=== PATIENT | female | born 1975 | race Caucasian/White ===

== ENCOUNTER → 2016-08-23 | Outpatient (CLI) | payer MEDICAID ==
[~2016-08-23] MED LIST: ALPR1TAB7 PO; AMPH30CA PO; FLUO20CA30 PO; HYDR-4246 PO; HYDR12.54 PO; IBUP-1547 PO; LEVO75TA10 PO; LISI-621 PO; METO5VIA2 PO; THYR15TA PO; ZOLP10TA2 PO
== END ==
LOC: WC.BC 12:31
PROVIDERS: ATTEND Obstetrics & Gynecology
DX: Z12.31 Encounter for screening mammogram for malignant neoplasm of breast (principal)

== ENCOUNTER 2016-09-05 08:05 | Observation (INO) | payer MEDICAID ==
[~2016-09-05] VITALS: Ht 157.5 cm; Wt 124.1 kg
--- OUTSIDE RECORDS SUMMARY | 2016-09-05 08:10 | XMS REPORT | Continuity of Care Document ---
Author Author [facility] Organization [facility] Address Unknown Phone Unavailable Care Team Providers Care Manager Quantitative Name Role Phone Tc Trevizo Primary Care Physician [phone] Source Comments Some departments are not documenting in the electronic medical record. If you do not see the information that you expected, contact Release of Information in the Health Information Management department at [phone] for further assistance in locating additional records.[facility] Active Allergies and Adverse Reactions No Known Allergies Current Medications Prescription Sig. Disp. Refills Start End Date Status Date lisinopril/hydrochlorothi Take by mouth daily. Active azide (ZESTORETIC) 20/25 tablet levothyroxine (SYNTHROID) Take 75 mcg by mouth Active 75 mcg tablet daily. amphetamine-dextroampheta Take 30 mg by mouth every Active mine XR(+) (ADDERALL XR) morning 30 mg capsule nitroglycerin (NITROSTAT) Place 0.4 mg under tongue Active 0.4 mg tablet every 5 minutes as needed. ALPRAZolam (XANAX) 1 mg Take 1 mg by mouth three Active tablet times daily as needed. FLUoxetine (PROZAC) 20 mg Take by mouth daily. Active capsule zolpidem (AMBIEN) 10 mg Take 10 mg by mouth at Active tablet bedtime as needed. Active Problems Problem Noted Date Syncope 02/08/2013 Overview: 01/30/13. Carotid Duplex ([facility]) 1. No significant plaque formation is identified within the cervical portion of either carotid artery. 2. No hemodynamically significant internal carotid artery stenosis. 01/30/13 MRI Brain ([facility]) 1. Negative MRI of brain. 2. Mild parnasal sinus diease. Chest pain, atypical 02/08/2013 HTN (hypertension) Anxiety Thyroid disease Social History Tobacco Use Types Packs/Day Years Used Date Never Smoker Alcohol Use Drinks/Week oz/Week Comments No Last Filed Vital Signs Vital Sign Reading Time Taken Blood Pressure 132/89 03/22/2013 3:49 PM POT RELINER Pulse 106 03/22/2013 3:49 PM POT RELINER Temperature - - Respiratory Rate - - Height 1.575 m (5' 2") 03/22/2013 3:49 PM POT RELINER Weight 99.837 kg (220 lb 1.6 oz) 03/22/2013 3:49 PM POT RELINER Body Mass Index 40.25 03/22/2013 3:49 PM POT RELINER Oxygen Saturation 100% 03/22/2013 3:49 PM POT RELINER Plan of Care Health Maintenance Due Date Last Done Comments Physical (Comprehensive) 1981 Exam Pertussis Vaccine 1985 Tetanus Vaccine 09/21/1991 Cervical Cancer Screening 09/21/1995 Breast Cancer Screening 2014 Influenza Vaccine 01/06/2017 Results from Last 3 Months Not on file
--- OUTSIDE RECORDS SUMMARY | 2016-09-05 08:10 | XMS REPORT | Continuity of Care Document ---
Author Author [facility] Organization [facility] Address Unknown Phone Unavailable Care Team Providers Care Journeyman Level Acoustic Analyst Name Role Phone IVÁN JAMES Primary Care Physician [phone] Insurance Providers Guarantor Juli Clifford Address [address] [place] [address] [place] Email [email or web address] Payer [facility] Community Plan Policy Number [id number] Subscriber's Name Juli Clifford Relationship 18 Self Effective Date 16 Expiration Date 16 Advance Directives Directive Response Recorded Date/Time Ordered Resuscitation Status Full Code 05/16/16 12:15pm Resuscitation Documents on File No 05/17/16 6:24am DPOA for Healthcare Only No 05/17/16 6:24am Living Will No 05/17/16 6:24am Problems Active Problems Medical Problem Onset Date Status Influenza A Unknown Acute Influenza A Unknown Acute Rash Unknown Acute Surgical Problem Onset Date Status Status post laparoscopic hysterectomy Unknown Medications Current Home Medications Medication Dose Units Route Directions Days Qty Instructions Start Date Alprazolam 1 Mg Tablet 1 Mg Oral As Needed as needed for Anxiety 06/07/14 Dextroamphetamine/Amphetamine (Adderall Xr 30 Mg Capsule) 30 Mg Cap.er.24h 1 Cap Oral Daily 06/07/14 Fluoxetine Hcl (Prozac) 20 Mg Capsule 1 Cap Oral Daily 06/07/14 Hydrochlorothiazide 12.5 Mg Tablet 1 Tab Oral Give With Breakfast 05/16/16 Hydrocodone/Acetaminophen ([place] 5-325 Tablet) 5-325 Tablet 1-2 Tab Oral Every 4 Hours as needed for Pain 40 Tablet 05/18/16 Ibuprofen 800 Mg Tablet 800 Mg Oral Every 8 Hours as needed for Pain 40 Tablet 05/18/16 Levothyroxine Sodium 75 Mcg Tablet 75 Mcg Oral Before Breakfast Once daily before breakfast. 06/07/14 Lisinopril 20 Mg Tablet 20 Mg Oral Daily for Hypertension Metoclopramide Hcl 5 Mg/1 Ml Vial 10 Mg Oral Every 6 Hours as needed for Nausea 20 Tablet 05/18/16 Thyroid,Pork (Hubbard Thyroid) 15 Mg Tablet 3 Tab Oral Daily 05/16 Zolpidem Tartrate (Ambien) 10 Mg Tablet 10 Mg Oral Bedtime as needed for Prn Orders Take 1 tablet, by mouth, 1 time a day (at BEDTIME). 06/07/14 Past Home Medications Medication Directions Ordered Status Ferrous Fumarate/Ascorbic Acid (Jaun-Sequels 65-25 Mg Caplet) 1 Each Tablet.er , 1 Tab Oral Twice A Day 05/16/16 Discontinued Norethindrone-E.estradiol-Iron (Lo Loestrin Fe 1-10 Tablet) 1 Each Tablet, 1 Tab Oral Daily 05/16/16 Discontinued Social History Social History Problem Response Recorded Date/Time Onset Date Status Reason for Hospitalization HYSTERECTOMY 05/18/2016 1:07pm Not Applicable Not Applicable Chewing Tobacco Status No 05/17/2016 6:21am Not Applicable Not Applicable Hx Substance Use No 05/17/2016 6:21am Not Applicable Not Applicable Hx Alcohol Use Y 4x year 05/17/2016 6:21am Not Applicable Not Applicable Has the pt used tobacco in the last 12 months No 05/17/2016 6:21am Not Applicable Not Applicable Query Response Start Date Stop Date Smoking Status Never smoker Hospital Discharge Instructions Instructions: Care Instructions: I was in the hospital because (patient own words): HYSTERECTOMY Discharge Diet: regular Discharge Activity: as reviewed Follow Up Appointments: FOLLOW UP WITH DR. GEE IN HER OFFICE ON Monday05/25/2016 AT 9:45 AM. Pending Lab / Results: Will be notified Expected Signs/Symptoms: as reviewed Notify Physician If: any concerns see written instructions During Business Hours:: Please call the physician's office at [phone] After Business Hours:: Please call [phone] and have the dorr operator page the physician. Pain Management/Treatment: RXs provided Wound/Incision Care: as instructed Condition at time of discharge: Good Plan of Care Discharge Date 05/18/16 2:20pm Instructions/Education Provided [facility] Hysterectomy Dismissal Prescriptions See Medication Section Functional Status Query Response Date Recorded Mobility Status Ambulatory May 17, 2016 3:36pm Assistive Devices None May 17, 2016 3:36pm Activity Limitations None May 17, 2016 3:36pm Feeding Ability Independent May 17, 2016 3:36pm Toileting Ability Independent May 17, 2016 3:36pm Grooming Ability Independent May 17, 2016 3:36pm Dressing Ability Independent May 17, 2016 3:36pm Driving Ability Independent May 17, 2016 3:36pm Housework Ability Independent May 17, 2016 3:36pm Meal Preparation Ability Independent May 17, 2016 3:36pm Stair Climbing Ability Independent May 17, 2016 3:36pm Ability to complete ADL's impeded by No change May 17, 2016 3:36pm Cognitive/Perceptual Impairments None May 17, 2016 3:36pm Visual Assistive Devices Glasses With patient May 17, 2016 3:36pm Preferred Method of Learning Reading Listening May 17, 2016 3:36pm Allergies, Adverse Reactions, Alerts No known allergies. Immunizations Query Response on File Recorded Date/Time Hx Influenza Vaccination Y 2016 05/17/16 6:21am Hx Pneumococcal Vaccination No 05/17/16 6:21am Hx Influenza Vaccination Y 2016 05/17/16 6:21am Influenza Vaccine Hx 2015 05/17/16 3:37pm Vital Signs Acute Vital Signs Vital Response Date/Time Temperature (Fahrenheit) 98.0 deg F (96.8 - 99.1) 05/18/2016 12:00pm Temperature (Calculated Celsius) 36.99735 degrees C (36.0 - 37.3) 05/18/2016 12:00pm Temperature Source Oral 05/18/2016 12:00pm Pulse Rate (adult) 74 bpm (60 - 100) 05/18/2016 12:00pm Respiratory Rate 18 breaths/min (10 - 20) 05/18/2016 12:00pm O2 Sat by Pulse Oximetry 97 % (90 - 100) 05/18/2016 12:00pm Oxygen Delivery Method Room Air 05/18/2016 12:00pm Oxygen Delivery Method Room Air 05/18/2016 11:13am Oxygen Flow Rate 1.00 L/min 05/17/2016 10:00pm Blood Pressure 130/74 mm Hg 05/18/2016 12:00pm Blood Pressure Source Automatic Cuff 05/18/2016 12:00pm Height (Feet) 5 feet 05/17/2016 5:40am Height (Inches) 2.00 inches 05/17/2016 5:40am Weight (Kilograms) 119.500 kg 05/18/2016 7:13am Body Mass Index (BMI) 47.5 05/17/2016 5:40am Results Laboratory Results Test Name Result Units Flags Reference Collection Date/Time Result Date/ Time Comments White Blood Count 6.0 T/MM3 4.5-11.0 05/17/2016 5:47am 05/17/2016 6: 14am Red Blood Count 4.41 M/MM3 4.00-5.20 05/17/2016 5:47am 05/17/2016 6: 14am Hemoglobin 12.9 GM/DL 12-16 05/17/2016 5:47am 05/17/2016 6:14am Hematocrit 38.3 % 36-46 05/17/2016 5:47am 05/17/2016 6:14am Mean Corpuscular Volume 86.8 UM3 80-100 05/17/2016 5:47am 05/17/2016 6: 14am Mean Corpuscular Hemoglobin 29.3 UUG 26-34 05/17/2016 5:47am 2016 6:14am Mean Corpuscular Hemoglobin Concent 33.7 GM/DL 31-37 05/17/2016 5:47am 05/17/2016 6:14am RDW Standard Deviation 40.1 FL 36.9-50.2 05/17/2016 5:47am 05/17/2016 6 :14am Platelet Count 239 T/MM3 130-400 05/17/2016 5:47am 05/17/2016 6:14am Mean Platelet Volume 9.9 UM3 9.4-12.4 05/17/2016 5:47am 05/17/2016 6: 14am Neutrophils (%) (Auto) 56.4 % 33-66 05/17/2016 5:47am 05/17/2016 6: 14am Lymphocytes (%) (Auto) 34.8 % 23-45 05/17/2016 5:47am 05/17/2016 6: 14am Monocytes (%) (Auto) 4.7 % 0-9.0 05/17/2016 5:4705/17/2016 6:14am Eosinophils (%) (Auto) 3.4 % 0-4 05/17/2016 5:4705/17/2016 6:14am Basophils (%) (Auto) 0.5 % 0-2 05/17/2016 5:4705/17/2016 6:14am Immature Granulocyte % (Auto) 0.2 % 0.0-0.5 05/17/2016 5:472016 6:14am Absolute Neutrophils (auto) 3.4 T/MM3 1.8-7.7 05/17/2016 5:472016 6:14am Absolute Lymphocytes (auto) 2.1 T/MM3 1-4.8 05/17/2016 5:472016 6:14am Absolute Monocytes (auto) 0.3 T/MM3 0-0.8 05/17/2016 5:4705/17/2016 6:14am Absolute Eosinophils (auto) 0.2 T/MM3 0-0.5 05/17/2016 5:472016 6:14am Absolute Basophils (auto) 0.0 T/MM3 0-0.2 05/17/2016 5:05/17/2016 6:14am Absolute Immature Granulocyte (auto 0.01 T/MM3 0.00-0.03 05/17/2016 5: 4705/17/2016 6:14am Icterus Index < 2 0-7 05/17/2016 5:4705/17/2016 6:20am Chemistry Specimen Hemolysis < 15 0-25 05/17/2016 5:4705/17/2016 6 :20am 0-25: Specimen Exhibited No Hemolysis. Turbidity < 20 0-20 05/17/2016 5:4705/17/2016 6:20am Sodium Level 142 MEQ/L 134-144 05/17/2016 5:4705/17/2016 6:20am Potassium Level 4.0 MEQ/L 3.6-5 05/17/2016 5:47am 05/17/2016 6:20am Chloride Level 106 MEQ/L 98-107 05/17/2016 5:4705/17/2016 6:20am Carbon Dioxide Level 25 MEQ/L 22-30 05/17/2016 5:47am 05/17/2016 6: 20am Anion Gap 11 MEQ/L 5-15 05/17/2016 5:47am 05/17/2016 6:20am Blood Urea Nitrogen 6.0 MG/DL L 7-17 05/17/2016 5:47am 05/17/2016 6: 20am Creatinine 0.8 MG/DL 0.7-1.2 05/17/2016 5:47am 05/17/2016 6:20am BUN/Creatinine Ratio 8 RATIO 6-26 05/17/2016 5:47am 05/17/2016 6:20am Glomerular Filtration Rate Calc 79 05/17/2016 5:47am 05/17/2016 6: 20am Glucose Level 104 MG/DL 65-110 05/17/2016 5:47am 05/17/2016 6:20am Calculated Osmolality 271 MOSM/KG 261-280 05/17/2016 5:47am 05/17/2016 6:20am Calcium Level 8.7 MG/DL 8.4-10.2 05/17/2016 5:47am 05/17/2016 6:20am Total Bilirubin 0.60 MG/DL 0.20-1.30 05/17/2016 5:47am 05/17/2016 6: 20am Alkaline Phosphatase 67 U/L 38-126 05/17/2016 5:47am 05/17/2016 6:20am Total Protein 6.8 G/DL 6.3-8.2 05/17/2016 5:47am 05/17/2016 6:20am Albumin 3.9 G/DL 3.5-5.0 05/17/2016 5:47am 05/17/2016 6:20am Globulin 2.9 G/DL 2.4-3.6 05/17/2016 5:47am 05/17/2016 6:20am Albumin/Globulin Ratio 1.3 RATIO 1.1-2.2 05/17/2016 5:47am 05/17/2016 6 :20am Aspartate Amino Transf (AST/SGOT) 21 U/L 14-36 05/17/2016 5:47am 2016 6:20am Alanine Aminotransferase (ALT/SGPT) 35 U/L 9-52 05/17/2016 5:47am 05/17 6:20am Urine Collection Type CLEANCATCH-MIDSTREAM 05/17/2016 6:56am 2016 7:19am Urine Color YELLOW YELLOW 05/17/2016 6:56am 05/17/2016 7:19am Urine Turbidity CLEAR CLEAR 05/17/2016 6:56am 05/17/2016 7:19am Urine Specific [place] 1.015 1.015-1.025 05/17/2016 6:56am 2016 7:19am Urine pH 8.5 H 5.0-8.0 05/17/2016 6:56am 05/17/2016 7:19am Urine Leukocyte Esterase NEGATIVE NEGATIVE 05/17/2016 6:56am 2016 7:19am Urine Nitrite NEGATIVE NEGATIVE 05/17/2016 6:56am 05/17/2016 7:19am Urine Protein 1+ A NEGATIVE 05/17/2016 6:56am 05/17/2016 7:19am Urine Glucose (UA) NEGATIVE NEGATIVE 05/17/2016 6:56am 05/17/2016 7: 19am Urine Ketones NEGATIVE NEGATIVE 05/17/2016 6:56am 05/17/2016 7:19am Urine Urobilinogen 0.2 EU/DL NORMAL 05/17/2016 6:56am 05/17/2016 7: 19am Urine Bilirubin NEGATIVE NEGATIVE 05/17/2016 6:56am 05/17/2016 7: 19am Urine Blood 3+ A NEGATIVE 05/17/2016 6:56am 05/17/2016 7:19am Urine WBC NONE SEEN /HPF 0-5 05/17/2016 6:56am 05/17/2016 7:30am Urine RBC 5-10 /HPF H 0-3 05/17/2016 6:56am 05/17/2016 7:30am Urine Squamous Epithelial Cells 10-20 05/17/2016 6:56am 05/17/2016 7:30am Urine Bacteria TRACE H NEGATIVE 05/17/2016 6:56am 05/17/2016 7:30am Urine Culture Indicated CULT NOT INDICATED 05/17/2016 6:56am 2016 7:30am Procedures Procedure Status Date Provider(s) Robot-assisted hysterectomy Completed 05/17/16 JOHN GEE MD Encounters Encounter Location Arrival/Admit Date Discharge/Depart Date Attending Provider Departed [facility] 05/17/16 5:10am 05/18/16 2: 20pm JOHN GEE MD
[2016-09-05] MEDS ORDERED: NORMAL SALINE 1,000 ML IV ONE (08:17)
--- NOTE | 2016-09-05 08:26 | ERPDOC ---
Departure Disposition Decision Date: September 05, 2016 Disposition Decision Time: 09:51 Disposition: 02 TO [facility] Impression Impression Impression: Primary Impression: Abdominal pain Abdominal location: epigastric Qualified Codes: R10.13 - Epigastric pain Additional Impression: Nausea & vomiting Vomiting type: unspecified Vomiting Intractability: non-intractable Qualified Codes: R11.2 - Nausea with vomiting, unspecified Severity: Severe Condition: Improved Seen By: Physician only Referrals: IVÁN JAMES (PCP) RADHA ALVES DO (Family) Problems/Meds/Labs Reviewed?: Yes Medications reviewed and manag: Yes Follow up care ordered?: Yes Mental Status: Alert, Oriented HPI - Abdominal Pain General Chief Complaint: Abdominal Pain Stated Complaint: ABDOMINAL PAIN Time Seen by Provider: 08:17 Source: patient History/Exam Limitations: no limitations HPI - Abdominal Pain Initial Comments 40yo woman presents to the ER today for abdominal pain. Pts sx started on Sat with vague, crampy, stabbing abd pain. Sx are markedly worse with any food/ drink. She had similar sx 20yrs ago when her GB was removed. Now has stabbing pain in her epigastrum that radiates to her back and right side. Recently started victoza injections for wt loss. Occurred At: home Onset: Rapid, Getting worse Duration: other Pain Scale: Now & Worst: 8/10 Quality: sharpness, stabbing Location: epigastric Radiation: RUQ, back Activities at Onset: none Modifying Factors: IMPROVES WITH: rest, sitting, WORSE WITH: analgesics, breathing, eating, lying down, movement, palpation, walking Associated Symptoms: back pain, heartburn, nausea/vomiting, DENIES: chest pain , diaphoresis, fatigue, fever/chills, headache, rash Hx of Similar Symptoms: Yes Allergies: Coded Allergies: No Known Allergies (Unverified , 09/05/16) Past History Past Medical History Metabolic: hypertension, hypothyroidism Hx Echocardiogram: No Psychological: ADHD, anxiety Surgical History General: gallbladder Reproductive/: tubal ligation Family History Family PMH: FOUND: other Vaccines Hx Influenza Vaccination: Yes (2016) Hx Pneumococcal Vaccination: No Social History Does patient use chewing tobac: No Second Hand Exposure: No Substance Use Type: does not use Sexuality: male partner Review of Systems GI Upper Abdomen: nausea, pain, see HPI, vomiting, DENIES: dysphagia, food intolerances, heartburn/indigestion, hematemesis All other Systems All Other Systems: Reviewed and Negative Physical Exam General General Nourishment: well nourished, well developed, appears stated age, no acute distress, adult, obese General Body Habitus: well groomed Vitals and Pain First Documented Vital Signs Date Time Temp Pulse Resp B/P Pulse Ox O2 Delivery O2 Flow Rate FiO2 09/05/16 08:08 98.3 104 20 183/110 98 Room Air Weight: Kilograms: 124.100 Height (feet): 5 Height (inches): 2.00 Triage Pain Scale: RN VS reviewed by Provider: Yes Normal Exams: Head: Normocephalic w/o trauma Eyes: Pupils are PERRLA w/ EOMI, No scleral icterus, irritation ENMT: No facial trauma, nasal exudates, pharyngeal erythema Neck: Full range of motion, without adenopathy, JVD Lymphatic: No lymphadenopathy Musculoskeletal: No tenderness, or deformity noted Integumentary: No rashes, hives, or bruising noted Neurologic: Patient is alert, and oriented Psychiatric: Patient exhibits, appropriate attention Respiratory (brief) Respiratory: FOUND: clear all weiss, equal bilaterally, symmetrical, NOT FOUND : rales, wheezes Cardiovascular (brief) Cardiac: FOUND: regular rate, regular rhythm, NOT FOUND: click, gallop, murmur , pedal edema, peripheral edema, rub Capillary Refill: <2 sec Pulses: all distal extremities, equal, strong Abdomen (brief) Abdominal Brief: FOUND: bowel normo active x4, soft, tender (Exquisitely TTP in epigastrum and RUQ. Pos rebound, but no guarding or Rovsing's.), NOT FOUND: distended, hepatosplenomegaly, pulsatile mass Differential Diagnoses Considering: Bowel Obstruction, Constipation, Gastroenteritis, GERD, Hepatitis , Hernia, Ileus, Neoplasm, Pancreatitis, Pyelonephritis, Renal Colic, Ulcer, UTI , Volvulus Progress Results/Orders Orders Procedure Category Date Status Time Iv Lock (Ed Only) EDM 09/05/16 Transmitted 08:17 Nothing By Mouth (Ed EDM 09/05/16 Transmitted Only) 08:17 Cbc W/Auto LAB 09/05/16 Complete Diff-Reflex Manual 08:17 Bmp - Basic Metabolic LAB 09/05/16 Complete Panel 08:17 Lipase LAB 09/05/16 Complete 08:17 Ua, Dip Wreflex LAB 09/05/16 Complete Microsc & Autotransfusionist 08:17 Normal Saline (Normal PHA 09/05/16 Complete Saline Iv) 08:17 Ondansetron Inj PHA 09/05/16 Complete (Zofran) 08:30 Ketorolac (Toradol) PHA 09/05/16 Complete 08:30 Tsh - Thyroid Stim LAB 09/05/[address] Abd/Pelvis CT 09/05/16 Resulted W/Contrast Only Iohexol (Omnipaque) PHA 09/05/16 Complete 09:03 Normal Saline (Ns) PHA 09/05/16 Complete 09:03 Saline Flush (Iv PHA 09/05/16 Complete Flush) 09:03 Hepatic Panel LAB 09/05/[address] In Facility: ED ADM 09/05/16 Transmitted 05/09 Ns (0.45% Ns) PHA 09/05/16 In Process 12:00 Ondansetron Inj PHA 09/05/16 In Process (Zofran) 12:00 Metoclopramide PHA 09/05/16 In Process (Reglan Inj) 12:00 Hydromorphone PHA 09/05/16 Complete (Dilaudid) 12:00 Npo: Sips And Chips DIET 09/05/16 Transmitted Dinner Zolpidem (Ambien 10mg) PHA 09/05/16 In Process 12:00 Pantoprazole PHA 09/05/16 Complete (Protonix Iv) 12:00 Pantoprazole PHA 09/05/16 In Process (Protonix Iv) 21:00 Lorazepam (Ativan) PHA 09/05/16 In Process 12:00 Cbc W/Auto LAB 09/06/16 Verified Diff-Reflex Manual 04:00 Cmp - Comprehensive LAB 09/06/16 Verified Metabolic 04:00 Hydromorphone PHA 09/05/16 In Process (Dilaudid) 12:29 Sucralfate Slurry PHA 09/05/16 In Process (Carafate Slurry) 17:00 Hemoglobin A1c LAB 09/05/16 Complete 12:21 Daily Weight SEVEN 09/05/16 In Process 13:03 Measure Intake And SEVEN 09/05/16 In Process Output 13:03 Compression Type Scd/ SEVEN 09/05/16 In Process Donny Hose 13:03 Lab Results Laboratory Tests Test 09/05/16 08:32 09/05/16 08:33 Urine Collection Type Cleancatch-midstream Urine Color Yellow Urine Turbidity Clear Urine pH 5.0 Urine Specific [place] >=1.030 Urine Protein Negative Urine Glucose (UA) Negative Urine Ketones Negative Urine Blood Negative Urine Nitrite Negative Urine Bilirubin Negative Urine Urobilinogen 0.2EU/DL Urine Leukocyte Esterase Negative Urinalysis Comment Microscopic not ind. White Blood Count 5.7T/MM3 Red Blood Count 4.89M/MM3 Hemoglobin 14.0GM/DL Hematocrit 42.4% Mean Corpuscular Volume 86.7UM3 Mean Corpuscular Hemoglobin 28.6UUG Mean Corpuscular Hemoglobin Concent 33.0GM/DL RDW Standard Deviation 39.6FL Platelet Count 230T/MM3 Mean Platelet Volume 10.0UM3 Immature Granulocyte % (Auto) 0.0% Neutrophils (%) (Auto) 56.5% Lymphocytes (%) (Auto) 35.0% Monocytes (%) (Auto) 5.2% Eosinophils (%) (Auto) 3.0% Basophils (%) (Auto) 0.3% Absolute Immature Granulocyte (auto 0.00T/MM3 Absolute Neutrophils (auto) 3.2T/MM3 Absolute Lymphocytes (auto) 2.0T/MM3 Absolute Monocytes (auto) 0.3T/MM3 Absolute Eosinophils (auto) 0.2T/MM3 Absolute Basophils (auto) 0.0T/MM3 Turbidity < 20 Sodium Level 147MEQ/L Potassium Level 3.9MEQ/L Chloride Level 110MEQ/L Carbon Dioxide Level 24MEQ/L Anion Gap 13MEQ/L Blood Urea Nitrogen 7.0MG/DL Creatinine 0.6MG/DL Glomerular Filtration Rate Calc 110 BUN/Creatinine Ratio 12RATIO Glucose Level 121MG/DL Hemoglobin A1c 5.7% Calculated Osmolality 281MOSM/KG Calcium Level 9.3MG/DL Total Bilirubin 0.60MG/DL Conjugated Bilirubin 0.00MG/DL Unconjugated Bilirubin 0.10MG/DL Icterus Index < 2 Aspartate Amino Transf (AST/SGOT) 76U/L Alanine Aminotransferase (ALT/SGPT) 90U/L Alkaline Phosphatase 100U/L Total Protein 7.1G/DL Albumin 4.0G/DL Globulin 3.1G/DL Albumin/Globulin Ratio 1.3RATIO Lipase 288U/L Thyroid Stimulating Hormone (TSH) 7.52MIU/L Chemistry Specimen Hemolysis < 15 Medications Current ED Medications Sodium Chloride (Normal Saline IV) 1,000 ml @ 0 mls/hr Q0M ONCE IV Last administered on 09/05/16 08:41; Start 09/05/16 at 08:17; Stop 09/05/16 at 08:18; Status DC Ondansetron HCl (Zofran) 4 mg O ONCE IV Last administered on 09/05/16 08:45; Start 09/05/16 at 08:30; Stop 09/05/16 at 08:31; Status DC Ketorolac Tromethamine (Toradol) 30 mg O ONCE IV Last administered on 08:42; Start 09/05/16 at 08:30; Stop 09/05/16 at 08:31; Status DC Iohexol 1 bottle 1 bottle STK-MED ONCE .ROUTE ; Start 09/05/16 at 09:03; Stop 09/05/16 at 09:04; Status DC Sodium Chloride (NS) 100 ml @ As Directed STK-MED ONCE .ROUTE ; Start 09/05/16 at 09:03; Stop 09/05/16 at 09:04; Status DC Sodium Chloride (Iv Flush) 10 ml STK-MED ONCE .ROUTE ; Start 09/05/16 at 09:03; Stop 09/05/16 at 09:04; Status DC Progress Progress Pt with Hx and PE c/w pancreatitis, but without lab/rad evidence to corroborate. Discussed admission with hospitalist due to PO intolerance. Will admit for obs. Consult/PCP Consult/PCP : Physician Contacted: Hospitalist Time Called: 09:27 Time of first response: 09:32 Type of discussion: Admit Discussion/PCP Discussion Details Dr. Guevara: requested adding LFTs; call back then. If LFTs are significantly elevated, pt may require ERCP. Called back, no bili elevation. Will admit for obs. CT CT : CT: Abd/Pelvis IV contrast Interpretation: Abnormal (Hepatomegaly and steatosis; DJD of lumbar spine), Reviewed Written Report BELTRAN COVINGTON DO September 05, 2016 08:26
[2016-09-05] MEDS ORDERED: KETOROLAC 30mg/ml INJECTION IV ONE (08:30)
[2016-09-05] MEDS ORDERED: ONDANSETRON 4mg/2ml INJECTION IV ONE (08:30)
--- OUTSIDE RECORDS SUMMARY | 2016-09-05 08:31 | XMS REPORT | Continuity of Care Document ---
Author Author [facility] Organization [facility] Address Unknown Phone Unavailable Care Team Providers Care Control Tower Operator Name Role Phone Tc Trevizo Primary Care Physician [phone] Source Comments Some departments are not documenting in the electronic medical record. If you do not see the information that you expected, contact Release of Information in the Health Information Management department at [phone] for further assistance in locating additional records.[facility] Active Allergies and Adverse Reactions No Known [...] Date Syncope 02/08/2013 Overview: 01/30/13. Carotid Duplex ([facility]) 1. No significant plaque formation is identified within the cervical portion of either carotid artery. 2. No hemodynamically significant internal carotid artery stenosis. 01/30/13 MRI Brain ([facility]) 1. Negative MRI of brain. 2. Mild parnasal sinus diease. 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
[2016-09-05 08:45] LABS: BASOPHILS % (AUTO) 0.3 % (0-2); EOSINOPHILS # (AUTO) 0.2 T/MM3 (0-0.5); HCT - HEMATOCRIT 42.4 % (36-46); MEAN CORPUSCULAR HGB 28.6 UUG (26-34); MEAN CORPUSCULAR VOLUME 86.7 UM3 (80-100); MONOCYTES # (AUTO) 0.3 T/MM3 (0-0.8); MONOCYTES % (AUTO) 5.2 % (0-9.0); NEUTROPHILS #(AUTO)-ABSOLUTE 3.2 T/MM3 (1.8-7.7); NEUTROPHILS % (AUTO) 56.5 % (33-66); RED BLOOD COUNT 4.89 M/MM3 (4.00-5.20); WBC - WHITE BLOOD COUNT 5.7 T/MM3 (4.5-11.0)
[2016-09-05 08:45] LABS: BLOOD, URINE NEGATIVE (NEGATIVE); COLOR,URINE YELLOW (YELLOW); LEUKOCYTE ESTERASE ,URINE NEGATIVE (NEGATIVE); NITRITE,URINE NEGATIVE (NEGATIVE); UROBILINOGEN,URINE 0.2 EU/DL (NORMAL)
--- NOTE | 2016-09-05 08:48 | NUR ---
IV IVF INFUSING AND MEDS ADMINISTERED ORDERED
[2016-09-05 08:54] LABS: ANION GAP 13 MEQ/L (5-15); BUN/CREATININE RATIO 12 RATIO (6-26); CALCIUM 9.3 MG/DL (8.4-10.2); CHLORIDE 110 MEQ/L (98-107); CO2 - CARBON DIOXIDE 24 MEQ/L (22-30); CREATININE 0.6 MG/DL (0.7-1.2); GLOMERULAR FILTRATION RATE 110; GLUCOSE 121 MG/DL (65-110); LIPASE 288 U/L (23-300); POTASSIUM 3.9 MEQ/L (3.6-5); SODIUM 147 MEQ/L (134-144)
[2016-09-05] MEDS ORDERED: IOHEXOL 300 MG/ML 100ml INJECTION ONE (09:03)
[2016-09-05] MEDS ORDERED: NORMAL SALINE 100 ML ONE (09:03)
[2016-09-05] MEDS ORDERED: SALINE FLUSH 10ml SYRINGE ONE (09:03)
--- NOTE | 2016-09-05 09:03 | NUR ---
RADIOLOGY PT TO RADIOLOGY PER CART
--- NOTE | 2016-09-05 09:15 | NUR ---
RADIOLOGY AK FROM RADIOLOGY PER CART
--- NOTE | 2016-09-05 09:27 | DI ---
Indication: ITS.REASON: Abd pain, potential pancreatitis Procedure: CT ABD/PELVIS W/CONTRAST ONLY: Encounter: Initial Comparison: None Technique: Axial CT images were performed through the abdomen and pelvis after the administration of intravenous contrast. Coronal and sagittal reformatted images were also obtained. Automated Exposure Control and Iterative Reconstruction dose reducing techniques were utilized. Contrast: Omnipaque 300 100 mL Findings: Lower lungs: The visualized lower lungs are well-aerated without focal airspace consolidation. The visualized heart is normal in size without pericardial effusion. Abdomen: The liver is enlarged and hypodense but enhances homogeneously without focal mass. The gallbladder is surgically absent. No biliary ductal dilatation. The pancreas enhances homogeneously with no significant pancreatic inflammatory changes appreciated. The spleen is normal in size and enhancement. The adrenal glands are within normal limits. The kidneys enhance symmetrically and appear normal. The ureters are normal in course and caliber. The abdominal aorta is normal in course and caliber. The mesenteric arterial and venous structures appear patent. The stomach is contracted and appears grossly normal. Small bowel loops are normal in caliber without evidence of obstruction. The colon appears normal. The appendix is normal. No intra-abdominal free air, free fluid, focal fluid collections, or lymphadenopathy. Pelvis: The bladder is distended and appears normal. The uterus is surgically absent. No adnexal masses seen. No pelvic free fluid or lymphadenopathy. Osseous structures and soft tissues: No acute osseous abnormality. Degenerative disc disease of the visualized spine. Impression: 1. No abnormal pancreatic enhancement or peripancreatic inflammatory changes to suggest acute pancreatitis by CT. 2. No other acute abdominopelvic process identified by contrast-enhanced CT. 3. Hepatomegaly and steatosis. 4. Cholecystectomy and hysterectomy. 5. Degenerative disc disease of the visualized spine. .
[2016-09-05] MEDS ORDERED: LIRA0.6P2 SQ (09:32)
[2016-09-05] MEDS ORDERED: LISI1TAB13 PO (09:32)
[2016-09-05] MEDS ORDERED: ALBU8.5H INH (09:32)
[2016-09-05 09:45] LABS: ALBUMIN/GLOBULIN RATIO 1.3 RATIO (1.1-2.2); ALKALINE PHOSPHATASE 100 U/L (38-126); ALT (SGPT) 90 U/L (9-52); AST (SGOT) 76 U/L (14-36); TOTAL PROTEIN 7.1 G/DL (6.3-8.2)
--- NOTE | 2016-09-05 10:13 | NUR ---
REPORT REPORT TO [facility]
--- OUTSIDE RECORDS SUMMARY | 2016-09-05 10:14 | XMS REPORT | Continuity of Care Document ---
Author Author [facility] Organization [facility] Address Unknown Phone Unavailable Care Team Providers Care Stave Machine Tender Name Role Phone Tc Trevizo Primary Care Physician [phone] Source Comments Some departments are not documenting in the electronic medical record. If you do not see the information that you expected, contact Release of Information in the Health Information Management department at [phone] for further assistance in locating additional records.[facility] Active Allergies and Adverse Reactions [...] Date Syncope 02/08/2013 Overview: 01/30/13. Carotid Duplex ([facility]) 1. No significant plaque formation is identified within the cervical portion of either carotid artery. 2. No hemodynamically significant internal carotid artery stenosis. 01/30/13 MRI Brain ([facility]) 1. Negative MRI of brain. 2. Mild parnasal sinus diease. 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
--- NOTE | 2016-09-05 10:15 | NUR ---
COMFORT PT RATES PAIN 5-6/10. PT REPORTS SHE FEELS BLOATED
--- NOTE | 2016-09-05 10:25 | NUR ---
TRANSFER PT TO ROOM 145 PER WC
--- NOTE | 2016-09-05 10:25 | NUR ---
ARRIVAL pt arrived to medical unit at 1025, from ER, via wheelchair. vitals and weight were taken and entered. pt is on room air. denies needing pain meds. pt is alert and oriented. pt was assessed and made comfortable.
[2016-09-05 10:32] VITALS: Ht 157.5 cm; Wt 124.1 kg
[2016-09-05 10:35] VITALS: BP 124/69; PULSE 85; RESP 18; TEMP 97.6; O2SAT 100
[2016-09-05 10:40] VITALS: PULSE 82; RESP 18
[2016-09-05] MEDS ORDERED: ZOLPIDEM 10 MG TABLET PO PRN (12:00)
[2016-09-05] MEDS ORDERED: PANTOPRAZOLE 40mg INJECTION IV ONE (12:00)
[2016-09-05] MEDS ORDERED: HYDROMORPHONE 2mg/ml INJECTION IV PRN (12:00)
[2016-09-05] MEDS: METOCLOPRAMIDE 10mg/2ml INJECTION IV SCH ×3 (12:18→19:10)
[2016-09-05] MEDS: 1/2 NS 1,000 ML IV SCH ×2 (12:26→20:51)
[2016-09-05] MEDS: HYDROMORPHONE 2mg/ml INJECTION IV PRN ×4 (12:31→23:46)
--- NOTE | 2016-09-05 13:03 | HPPDOC ---
LEENA ZHANG SEED TRUCKER 09/05/16 1144: HPI - Adult Date DATE: 09/05/16 TIME: 11:40 General Chief Complaint: Abdominal pain History of Present Illness Florencia Clifford is a 40 y/o lady who started having abdominal pain on Monday night. It started out like an upset stomach, and she thought she'd be able to "tough it out". However, her pain worsened in intensity, and "buckled" her over in pain. Initially the pain started in epigastric area but when it's severe it spreads all over and shoots to her back. She has had severe nausea and near- emesis (she's holding it in). She hasn't been able to eat anything - as soon as she does the pain starts. She is only able to tolerate ice chips. Symptoms start even with a sip of lala phoebe. She denies fever/chills, weakness, or syncope. She reports an hour-long episode of dizziness about a week ago. No respiratory symptoms. The pain doesn't advance into her chest. She reports that her 15-year old had mono 3 weeks ago, but otherwise has not been exposed to any illness. Her family has been eating the same food as she has been and no one else is sick. She denies any recent travel. No dysuria or frequency. She takes Ibuprofen 800 mg a couple times per week. No ASA use. She reports she's had abdominal bloating that started 2 weeks after her hysterectomy in May - the bloating is made worse with ambulation. She's recently seen Dr. Velez for weight loss, and started Victoza about 2 weeks ago; otherwise, no new medication. Since her abdominal pain and nausea wouldn't relent, she presented to [facility] ED. Initial VS were stable (mild tachycardia). CBC was unremarkable. Chemistries showed hypernatremia (147) and mildly elevated LFTs (AST 76, ALT 90; AP & Tbili were normal). UA was negative for UTI. A CT scan of her abdomen and pelvis was done, which was negative for acute findings. She received a liter of fluid, Zofran, and Toradol in the ED without resolution of her symptoms. The hospitalist service was notified and she was admitted to observation status for further evaluation and symptom control. Past Medical History Past Medical History Patient's Medical History: (1) ADHD (attention deficit hyperactivity disorder) (2) Anxiety (3) Borderline hyperlipidemia (4) Depression (5) HTN (hypertension) (6) Nonalcoholic fatty liver disease (7) Hypothyroidism (8) Insomnia (9) Paroxysmal tachycardia (10) Morbid obesity with BMI of 50.0-59.9, adult Surgical History Patient's Surgical History: Robotic-assisted vaginal hysterectomy 05/2016 (Dr. Morillo) LEEP of cervic 2002 BTL 2001 Cholecystectomy 1993 Current Medications Home Meds Active Scripts Ibuprofen (Ibuprofen) 800 Mg Tablet, 800 MG PO Q8H Y for PAIN, #40 TAB Prov:JOHN MORILLO MD 05/18/16 Reported Medications Liraglutide (Victoza 3-River) 0.6 Mg/0.1 Ml Pen.injctr, 0.6 MG SQ HS, SYRINGE 09/05/16 Albuterol Sulfate (Proair HFA 90 mcg/actuation) 8.5 Gm Hfa.aer.ad, 2 PUFF INH PRN Y for ASTHMA, #85 09/05/16 Lisinopril/Hydrochlorothiazide (Lisinopril-Hctz 20-25 mg Tab) 1 Each Tablet, 1 TAB PO DAILY 09/05/16 Alprazolam (Alprazolam) 1 Mg Tablet, 1 MG PO PRN Y for ANXIETY, TAB 06/07/14 Zolpidem Tartrate (Ambien) 10 Mg Tablet, 10 MG PO HS Y for PRN ORDERS, TAB Take 1 tablet, by mouth, 1 time a day (at BEDTIME). 06/07/14 Dextroamphetamine/Amphetamine (Adderall Xr 30 mg Capsule) 30 Mg Cap.er.24h, 1 CAP PO DAILY, CAP 06/07/14 Allergies: Coded Allergies: No Known Allergies (Unverified , 09/05/16) Family History Family History: Brother of sudden cardiac arrest at age 46 Sister has RA, Reynaud's, HLD Mother has HLD, anxiety, spondylothesis of spine Father had pancreatic cancer and at age 72. Also had HTN. MGM - of old age. MGP - of stomach cancer. PGM & PGF - in a car accident before Florencia was born. PGF had HTN. Social History Smoking Status: Never smoker Does patient use chewing tobac: No Second Hand Exposure: No Substance Use Type: does not use Alcohol Intake: other (1-2 times per year) Sexuality: male partner Number of Children: 5 Current Occupation: Student at [employer]. Advance Directives: No DPOA for Healthcare Only Social History Comments PCP - Dr. Velez Review of Systems Constitutional: REPORTS: appetite decrease, fatigue, weight gain (30 lbs since 04/2016), DENIES: chills, dizziness, fever, weakness Eyes Vision: DENIES: vision changes ENMT Sinuses: NOT FOUND: congestion, rhinorrhea Mouth/Throat: DENIES: sore throat Cardiovascular DENIES: chest pain, dyspnea on exertion Vascular: DENIES: pedal edema Pulmonary Respiratory: DENIES: cough, dyspnea GI Upper Abdomen: abdominal swelling (ever since hysterectomy in May - bloating worsens with walking), nausea, pain, see HPI Lower Abdomen: DENIES: blood in stool, constipation, diarrhea, melena General: DENIES: burning, dysuria, frequency, urgency Musculoskeletal General: DENIES: joint pain Lumbar: DENIES: pain Integumentary Skin: DENIES: rash Neurological General: headache, DENIES: memory disturbances, seizures, syncope, weakness Psychiatric Psychiatric: anxiety, DENIES: depression Hematologic/Lymphatic DENIES: anemia Allergic/Immunological DENIES: frequent infections All Other Systems All Other Systems: Reviewed Physical Exam General General Nourishment: well nourished, well developed, obese Vital Signs Vital Signs Date Time Temp Pulse Resp B/P Pulse Ox O2 Delivery O2 Flow Rate FiO2 09/05/16 10:40 82 18 09/05/16 10:35 97.6 124/69 100 Room Air Height (Feet): 5 Height (Inches): 2.00 Eyes Brief: FOUND: PERRL, NOT FOUND: scleral icterus ENMT Brief: NOT FOUND: mucosa moist (tongue dry), pharnyx erythema Neck Brief: NOT FOUND: adenopathy Respiratory Auscultation: FOUND: normal (anterior breath sounds were clear), NOT FOUND: rales, rhonchi, wheezes Cardiovascular Auscultation: FOUND: S1, S2, regular Peripheral Pulses: 2+: Dorasalis Pedis (L), Dorsalis Pedis (R), Posterior Tibial (L), Posterior Tibial (R), Radial (L), Radial (R) Edema: 0: Anasarca, Arm (L), Arm (R), Face, Leg (L), Leg (R) Abdomen Inspection: FOUND: distention Palpation: FOUND: involuntary guarding, soft, tender, voluntary guarding, NOT FOUND: McBurney's point tender, Kramer's sign, rebound Auscultation: FOUND: normo active Comments very tender with guarding LUQ, epigastric, and RUQ Lymphatic (brief) Lymphatic Brief: NOT FOUND: adenopathy Musculoskeletal (brief) Musculoskeletal Brief: NOT FOUND: deformity Integumentary (brief) Integumentary Brief: FOUND: dry, pink, warm Integumentary General: FOUND: dry, warm Color: FOUND: pink Neurologic (brief) Neurological Brief: FOUND: cranial 2-12 intact (grossly) Neurologic GCS Eye Opening: (4)Spontaneous GCS Verbal: (5)Oriented GCS Motor: (6)Obeys Commands RN Documented GCS Total: 15 Psychiatric (brief) FOUND: alert, attentive, normal affect, oriented Laboratory Laboratory Tests Test 09/05/16 08:32 09/05/16 08:33 Urine Collection Type Cleancatch-midstream Urine Color Yellow Urine Turbidity Clear Urine pH 5.0 Urine Specific Carlton >=1.030 Urine Protein Negative Urine Glucose (UA) Negative Urine Ketones Negative Urine Blood Negative Urine Nitrite Negative Urine Bilirubin Negative Urine Urobilinogen 0.2EU/DL Urine Leukocyte Esterase Negative Urinalysis Comment Microscopic not ind. White Blood Count 5.7T/MM3 Red Blood Count 4.89M/MM3 Hemoglobin 14.0GM/DL Hematocrit 42.4% Mean Corpuscular Volume 86.7UM3 Mean Corpuscular Hemoglobin 28.6UUG Mean Corpuscular Hemoglobin Concent 33.0GM/DL RDW Standard Deviation 39.6FL Platelet Count 230T/MM3 Mean Platelet Volume 10.0UM3 Immature Granulocyte % (Auto) 0.0% Neutrophils (%) (Auto) 56.5% Lymphocytes (%) (Auto) 35.0% Monocytes (%) (Auto) 5.2% Eosinophils (%) (Auto) 3.0% Basophils (%) (Auto) 0.3% Absolute Immature Granulocyte (auto 0.00T/MM3 Absolute Neutrophils (auto) 3.2T/MM3 Absolute Lymphocytes (auto) 2.0T/MM3 Absolute Monocytes (auto) 0.3T/MM3 Absolute Eosinophils (auto) 0.2T/MM3 Absolute Basophils (auto) 0.0T/MM3 Turbidity < 20 Sodium Level 147MEQ/L Potassium Level 3.9MEQ/L Chloride Level 110MEQ/L Carbon Dioxide Level 24MEQ/L Anion Gap 13MEQ/L Blood Urea Nitrogen 7.0MG/DL Creatinine 0.6MG/DL Glomerular Filtration Rate Calc 110 BUN/Creatinine Ratio 12RATIO Glucose Level 121MG/DL Calculated Osmolality 281MOSM/KG Calcium Level 9.3MG/DL Total Bilirubin 0.60MG/DL Conjugated Bilirubin 0.00MG/DL Unconjugated Bilirubin 0.10MG/DL Icterus Index < 2 Aspartate Amino Transf (AST/SGOT) 76U/L Alanine Aminotransferase (ALT/SGPT) 90U/L Alkaline Phosphatase 100U/L Total Protein 7.1G/DL Albumin 4.0G/DL Globulin 3.1G/DL Albumin/Globulin Ratio 1.3RATIO Lipase 288U/L Thyroid Stimulating Hormone (TSH) 7.52MIU/L Chemistry Specimen Hemolysis < 15 Assessment & Plan Problems: (1) Abdominal pain Status: Acute Qualifiers: Abdominal location: epigastric Qualified Codes: R10.13 - Epigastric pain Assessment & Plan: CT abd/pelvis 09/05/16 1. No abnormal pancreatic enhancement or peripancreatic inflammatory changes to suggest acute pancreatitis by CT. 2. No other acute abdominopelvic process identified by contrast-enhanced CT. 3. Hepatomegaly and steatosis. 4. Cholecystectomy and hysterectomy. 5. Degenerative disc disease of the visualized spine. (2) Hypernatremia Status: Acute (3) LFT elevation Status: Acute Assessment & Plan: AST and ALT have been normal in [id number] per [facility] records (4) Anxiety Status: Chronic (5) ADHD (attention deficit hyperactivity disorder) Status: Chronic (6) Insomnia Status: Chronic (7) Hypothyroidism Status: Chronic (8) Paroxysmal tachycardia Status: Chronic (9) HTN (hypertension) Status: Chronic (10) Nonalcoholic fatty liver disease Status: Chronic (11) Morbid obesity with BMI of 50.0-59.9, adult Status: Chronic Plan/Intensity of Service Admitted to observation status under the hospitalist service for intractable nausea and severe abdominal pain. Abdominal pain/Epigastric tenderness: Lipase with normal and CT did not show evidence of pancreatitis. Will start Carafate and Protonix to treat empirically for PUD. Dilaudid if needed for severe pain. Intractable Nausea: Zofran as needed (although was not helpful in the emergency department). Will start scheduled Reglan. Hypernatremia: She received a liter of normal saline in the emergency department. Will start half-normal saline at 125 mL per hour. AST and ALT elevations: Review of records at [facility] revealed normal LFTs in 2014 and 2016, even though she does carry a diagnosis of nonalcoholic fatty liver disease. Total bilirubin was normal, alkaline phosphatase was also normal. Hepatitis B and hepatitis C were done recently in the clinic, and were negative. Hyperglycemia (minimal): Glucose was 121 on admission. I did not see a hemoglobin A1c ordered at the clinic. Will check one now. Hypothyroidism: TSH on admission was 7.52. Recommend follow-up with Dr. Velez. She was taken off of her levothyroxine in April 2016. She had a TSH drawn in the clinic on 08/10/16, which was 4.97 (upper range of normal 4.96), free T4 was normal at 0.9. At that time, Dr. Velez recommended observation. Morbid obesity: Weight gain of 30 pounds since April 2016. Abdominal symptoms and bloating have made it very difficult for her to exercise since this exacerbates the bloating. Dr. Velez started her on Victoza about 2 weeks ago. Could consider a delayed reaction to Victoza. Side effect profile shows nausea in 39%, diarrhea in 21%, Constipation 19%, vomiting in 16% and abdominal pain in 5% of people. Assessment and plan was discussed with attending. DVT Prophylaxis: SCD'S Code Status Full Code Hospital Course Summary Disclaimer The hospital course summary below is not to be considered part of the above Progress Note. Hospital Course Summary 09/05/16 Admitted to observation status under the hospitalist service for intractable nausea and severe abdominal pain. Abdominal pain/Epigastric tenderness: Lipase with normal and CT did not show evidence of pancreatitis. Will start Carafate and Protonix to treat empirically for PUD. Dilaudid if needed for severe pain. Intractable Nausea: Zofran as needed (although was not helpful in the emergency department). Will start scheduled Reglan. Hypernatremia: She received a liter of normal saline in the emergency department. Will start half-normal saline at 125 mL per hour. AST and ALT elevations: Review of records at [facility] revealed normal LFTs in 2015 and 2016, even though she does carry a diagnosis of nonalcoholic fatty liver disease. Total bilirubin was normal, alkaline phosphatase was also normal. Hepatitis B and hepatitis C were done recently in the clinic, and were negative. Hyperglycemia (minimal): Glucose was 121 on admission. I did not see a hemoglobin A1c ordered at the clinic. Will check one now. Hypothyroidism: TSH on admission was 7.52. Recommend follow-up with Dr. Velez. She was taken off of her levothyroxine in April 2016. She had a TSH drawn in the clinic on 08/10/16, which was 4.97 (upper range of normal 4.96), free T4 was normal at 0.9. At that time, Dr. Velez recommended observation. Morbid obesity: Weight gain of 30 pounds since April 2016. Abdominal symptoms and bloating have made it very difficult for her to exercise since this exacerbates the bloating. Dr. Velez started her on Victoza about 2 weeks ago. Could consider a delayed reaction to Victoza. Side effect profile shows nausea in 39%, diarrhea in 21%, Constipation 19%, vomiting in 16% and abdominal pain in 5% of people. DEX RAMSAY MD 09/05/16 1325: Past Medical History Current Medications Home Meds Active Scripts Ibuprofen (Ibuprofen) 800 Mg Tablet, 800 MG PO Q8H Y for PAIN, #40 TAB Prov:JOHN MORILLO MD 05/18/16 Reported Medications Liraglutide (Victoza 3-River) 0.6 Mg/0.1 Ml Pen.injctr, 0.6 MG SQ HS, SYRINGE 09/05/16 Albuterol Sulfate (Proair HFA 90 mcg/actuation) 8.5 Gm Hfa.aer.ad, 2 PUFF INH PRN Y for ASTHMA, #85 09/05/16 Lisinopril/Hydrochlorothiazide (Lisinopril-Hctz 20-25 mg Tab) 1 Each Tablet, 1 TAB PO DAILY 09/05/16 Alprazolam (Alprazolam) 1 Mg Tablet, 1 MG PO PRN Y for ANXIETY, TAB 06/07/14 Zolpidem Tartrate (Ambien) 10 Mg Tablet, 10 MG PO HS Y for PRN ORDERS, TAB Take 1 tablet, by mouth, 1 time a day (at BEDTIME). 06/07/14 Dextroamphetamine/Amphetamine (Adderall Xr 30 mg Capsule) 30 Mg Cap.er.24h, 1 CAP PO DAILY, CAP 06/07/14 Allergies: Coded Allergies: No Known Allergies (Unverified , 09/05/16) Assessment & Plan Assessment Agree with above H+LEENA VELEZ APRN September 05, 2016 11:44 DEX RAMSAY MD September 05, 2016 13:25
[2016-09-05] MEDS: LORAZEPAM 2 MG/ML INJECTION IV PRN ×2 (15:38→21:42)
[2016-09-05] MEDS: ONDANSETRON 4mg/2ml INJECTION IV PRN ×2 (15:38→21:44)
[2016-09-05 16:00] VITALS: BP 128/73; PULSE 86; RESP 18; TEMP 98.1; O2SAT 98
[2016-09-05] MEDS: SUCRALFATE 1 G/10ml ORAL SUSPENSION PO SCH ×2 (18:48→21:45)
--- NOTE | 2016-09-05 21:45 | NUR ---
comfort states abdominal discomfort and nausea. Zofran given, pt. requests Ativan for anxiousness due to discomfort
[2016-09-05] MEDS: PANTOPRAZOLE 40mg INJECTION IV SCH (21:47)
--- NOTE | 2016-09-05 23:46 | NUR ---
comfort up in room with good balance. Denies dizziness as up. Requests Dilaudid for abdominal pain
[2016-09-06 00:17] VITALS: BP 125/71; PULSE 86; RESP 16; TEMP 97; O2SAT 96
[2016-09-06] MEDS: METOCLOPRAMIDE 10mg/2ml INJECTION IV SCH ×3 (03:22→14:15)
[2016-09-06] MEDS: HYDROMORPHONE 2mg/ml INJECTION IV PRN (04:31)
--- NOTE | 2016-09-06 04:35 | NUR ---
rest sleeps off and on, repositions self for comfort. Up in room w/ good balance. Requests pain med, Dilaudid given
[2016-09-06] MEDS: 1/2 NS 1,000 ML IV SCH ×2 (05:10→14:15)
[2016-09-06 05:19] LABS: BASOPHILS % (AUTO) 0.2 % (0-2); EOSINOPHILS # (AUTO) 0.2 T/MM3 (0-0.5); EOSINOPHILS % (AUTO) 3.6 % (0-4); HGB - HEMOGLOBIN 12.3 GM/DL (12-16); IMMATURE GRANULOCYTE # (AUTO) 0.01 T/MM3 (0.00-0.03); IMMATURE GRANULOCYTE % (AUTO) 0.2 % (0.0-0.5); LYMPHOCYTES % (AUTO) 41.2 % (23-45); MEAN CORPUSCULAR HGB 28.9 UUG (26-34); MEAN CORPUSCULAR HGB CONC(MCHC 33.2 GM/DL (31-37); MEAN CORPUSCULAR VOLUME 86.9 UM3 (80-100); MEAN PLATELET VOLUME 10.1 UM3 (9.4-12.4); MONOCYTES # (AUTO) 0.2 T/MM3 (0-0.8); MONOCYTES % (AUTO) 4.6 % (0-9.0); NEUTROPHILS #(AUTO)-ABSOLUTE 2.4 T/MM3 (1.8-7.7); NEUTROPHILS % (AUTO) 50.2 % (33-66); RED BLOOD COUNT 4.26 M/MM3 (4.00-5.20); WBC - WHITE BLOOD COUNT 4.8 T/MM3 (4.5-11.0)
[2016-09-06 05:29] LABS: ALBUMIN 3.1 G/DL (3.5-5.0); ALBUMIN/GLOBULIN RATIO 1.1 RATIO (1.1-2.2); ALKALINE PHOSPHATASE 60 U/L (38-126); ALT (SGPT) 82 U/L (9-52); ANION GAP 11 MEQ/L (5-15); AST (SGOT) 74 U/L (14-36); BUN/CREATININE RATIO 10 RATIO (6-26); CALCIUM 8.4 MG/DL (8.4-10.2); CHLORIDE 106 MEQ/L (98-107); CO2 - CARBON DIOXIDE 24 MEQ/L (22-30); CREATININE 0.6 MG/DL (0.7-1.2); GLOMERULAR FILTRATION RATE 110; GLUCOSE 93 MG/DL (65-110); POTASSIUM 3.9 MEQ/L (3.6-5); SODIUM 141 MEQ/L (134-144); TOTAL PROTEIN 5.8 G/DL (6.3-8.2)
[2016-09-06] MEDS: SUCRALFATE 1 G/10ml ORAL SUSPENSION PO SCH ×2 (06:40→12:53)
[2016-09-06] MEDS: ONDANSETRON 4mg/2ml INJECTION IV PRN (06:40)
[2016-09-06] MEDS: LORAZEPAM 2 MG/ML INJECTION IV PRN (06:44)
--- NOTE | 2016-09-06 06:51 | NUR ---
comfort dozes off and on, resp. easy. Zofran and Ativan given for nausea and abdominal discomfort as pt. requests
[2016-09-06 07:40] VITALS: PULSE 80; RESP 18
[2016-09-06 07:47] VITALS: BP 125/68; PULSE 82; RESP 18; TEMP 98.1; O2SAT 95
--- NOTE | 2016-09-06 09:26 | PNPDOC ---
Subjective Date DATE: 09/06/16 TIME: 09:22 Subjective Pain is improved. States that the Carafate helps greatly. However, still gets very sharp pains even with ice chips. No nausea vomiting or diarrhea overnight. Objective Vital Signs Vital signs Vital Signs Date Time Temp Pulse Resp B/P Pulse Ox O2 Delivery O2 Flow Rate FiO2 09/06/16 07:47 98.1 82 18 125/68 95 Room Air Height (Feet): 5 Height (Inches): 2.00 Weight (Kilograms): 124.100 General Comments Gen.--awake alert oriented 3 in no acute distress CV--regular rate and rhythm Lungs--clear auscultation bilaterally Abdomen--obese, generalized diffusely tender mostly in the epigastric area Extremities--no edema cyanosis or clubbing Neurological--cranial nerves II through XII grossly intact Laboratory Laboratory Laboratory Tests 09/05/16 08:33 09/06/16 04:29 Laboratory Tests 09/05/16 08:33 09/06/16 04:29 Assessment & Plan Problems: (1) Abdominal pain Status: Acute Qualifiers: Abdominal location: epigastric Qualified Codes: R10.13 - Epigastric pain Assessment & Plan: CT abd/pelvis 09/05/16 1. No abnormal pancreatic enhancement or peripancreatic inflammatory changes to suggest acute pancreatitis by CT. 2. No other acute abdominopelvic process identified by contrast-enhanced CT. 3. Hepatomegaly and steatosis. 4. Cholecystectomy and hysterectomy. 5. Degenerative disc disease of the visualized spine. Given the fact that it improves a Carafate, this is most likely a gastritis. We will continue Carafate at this time along with the Protonix and slowly advance her diet. (2) Hypernatremia Status: Resolved (3) LFT elevation Status: Acute Assessment & Plan: AST and ALT have been normal in [id number] per [facility] records Etiology of this is unclear at this time. This likely secondary to the fatty liver. We will defer to her outpatient clinicians for further workup. I do not believe this is the etiology of her abdominal pain. (4) Anxiety Status: Chronic (5) ADHD (attention deficit hyperactivity disorder) Status: Chronic (6) Insomnia Status: Chronic (7) Hypothyroidism Status: Chronic (8) Paroxysmal tachycardia Status: Chronic (9) HTN (hypertension) Status: Chronic (10) Nonalcoholic fatty liver disease Status: Chronic (11) Morbid obesity with BMI of 50.0-59.9, adult Status: Chronic Assessment Agree with above H+P. Plan/Intensity of Service Admitted to observation status under the hospitalist service for intractable nausea and severe abdominal pain. Abdominal pain/Epigastric tenderness: Lipase with normal and CT did not show evidence of pancreatitis. Will start Carafate and Protonix to treat empirically for PUD. Dilaudid if needed for severe pain. Intractable Nausea: Zofran as needed (although was not helpful in the emergency department). Will start scheduled Reglan. Hypernatremia: She received a liter of normal saline in the emergency department. Will start half-normal saline at 125 mL per hour. AST and ALT elevations: Review of records at [facility] revealed normal LFTs in 2014 and 2015, even though she does carry a diagnosis of nonalcoholic fatty liver disease. Total bilirubin was normal, alkaline phosphatase was also normal. Hepatitis B and hepatitis C were done recently in the clinic, and were negative. Hyperglycemia (minimal): Glucose was 121 on admission. I did not see a hemoglobin A1c ordered at the clinic. Will check one now. Hypothyroidism: TSH on admission was 7.52. Recommend follow-up with Dr. Velez. She was taken off of her levothyroxine in April 2016. She had a TSH drawn in the clinic on 08/10/16, which was 4.97 (upper range of normal 4.96), free T4 was normal at 0.9. At that time, Dr. Velez recommended observation. Morbid obesity: Weight gain of 30 pounds since April 2016. Abdominal symptoms and bloating have made it very difficult for her to exercise since this exacerbates the bloating. Dr. Velez started her on Victoza about 2 weeks ago. Could consider a delayed reaction to Victoza. Side effect profile shows nausea in 39%, diarrhea in 21%, Constipation 19%, vomiting in 16% and abdominal pain in 5% of people. Assessment and plan was discussed with attending. Code Status Full Code Hospital Course Summary Disclaimer The hospital course summary below is not to be considered part of the above Progress Note. Hospital Course Summary 09/05/16 Admitted to observation status under the hospitalist service for intractable nausea and severe abdominal pain. Abdominal pain/Epigastric tenderness: Lipase with normal and CT did not show evidence of pancreatitis. Will start Carafate and Protonix to treat empirically for PUD. Dilaudid if needed for severe pain. Intractable Nausea: Zofran as needed (although was not helpful in the emergency department). Will start scheduled Reglan. Hypernatremia: She received a liter of normal saline in the emergency department. Will start half-normal saline at 125 mL per hour. AST and ALT elevations: Review of records at [facility] revealed normal LFTs in 2014 and 2015, even though she does carry a diagnosis of nonalcoholic fatty liver disease. Total bilirubin was normal, alkaline phosphatase was also normal. Hepatitis B and hepatitis C were done recently in the clinic, and were negative. Hyperglycemia (minimal): Glucose was 121 on admission. I did not see a hemoglobin A1c ordered at the clinic. Will check one now. Hypothyroidism: TSH on admission was 7.52. Recommend follow-up with Dr. Velez. She was taken off of her levothyroxine in April 2016. She had a TSH drawn in the clinic on 08/10/16, which was 4.97 (upper range of normal 4.96), free T4 was normal at 0.9. At that time, Dr. Velez recommended observation. Morbid obesity: Weight gain of 30 pounds since April 2016. Abdominal symptoms and bloating have made it very difficult for her to exercise since this exacerbates the bloating. Dr. Velez started her on Victoza about 2 weeks ago. Could consider a delayed reaction to Victoza. Side effect profile shows nausea in 39%, diarrhea in 21%, Constipation 19%, vomiting in 16% and abdominal pain in 5% of people. DEX RAMSAY MD September 06, 2016 09:25
[2016-09-06] MEDS: PANTOPRAZOLE 40mg INJECTION IV SCH (09:56)
--- NOTE | 2016-09-06 10:20 | NUR ---
CM THIS WORKER SPOKE WITH PT, INTRODUCED SELF, PROVIDED CONTACT INFO, EXPLAINED ROLE. PT STATED SHE LIVES WITH HER FAMILY IN [place], AND HER DC PLAN IS TO RETURN HOME. SHE SAID HER DAUGHTER OR OTHER FAMILY MEMBER WILL PICK HER UP WHEN SHE IS RELEASED. SHE DENIED HAVING ANY DC NEEDS/CONCERNS WHEN THIS WORKER ASKED. ENCOURAGED HER TO CALL IF QUESTIONS/NEEDS DO ARISE, AND SHE SAID OK. Addendum: 09/06/16 at 1021 by RAYMON CONTI Amended: Links added.
--- NOTE | 2016-09-06 10:21 | NUR ---
GISELLE RIVAS IS 1. Addendum: 09/06/16 at 1021 by RAYMON ROMERO SW Amended: Links added.
--- NOTE | 2016-09-06 14:58 | DSPDOC ---
General Date Date DATE: 09/06/16 TIME: 14:55 Attending Physician Sushant Ramsay MD Admitting Physician Sushant Ramsay MD Consulting Physician Admitting Diagnosis ABDOMINAL PAIN/VOMITING Discharge Diagnosis Suspected gastritis Laboratory Laboratory Tests Test 09/05/16 08:32 09/05/16 08:33 09/06/16 04:29 Urine Collection Type Cleancatch-midstream Urine Color Yellow (YELLOW) Urine Turbidity Clear (CLEAR) Urine pH 5.0 (5.0-8.0) Urine Specific [place] >=1.030 (1.015-1.025) Urine Protein Negative (NEGATIVE) Urine Glucose (UA) Negative (NEGATIVE) Urine Ketones Negative (NEGATIVE) Urine Blood Negative (NEGATIVE) Urine Nitrite Negative (NEGATIVE) Urine Bilirubin Negative (NEGATIVE) Urine Urobilinogen 0.2EU/DL (NORMAL) Urine Leukocyte Esterase Negative (NEGATIVE) Urinalysis Comment Microscopic not ind. White Blood Count 5.7T/MM3 (4.5-11.0) 4.8T/MM3 (4.5-11.0) Red Blood Count 4.89M/MM3 (4.00-5.20) 4.26M/MM3 (4.00-5.20) Hemoglobin 14.0GM/DL (12-16) 12.3GM/DL (12-16) Hematocrit 42.4% (36-46) 37.0% (36-46) Mean Corpuscular Volume 86.7UM3 (80-100) 86.9UM3 (80-100) Mean Corpuscular Hemoglobin 28.6UUG (26-34) 28.9UUG (26-34) Mean Corpuscular Hemoglobin Concent 33.0GM/DL (31-37) 33.2GM/DL (31-37) RDW Standard Deviation 39.6FL (36.9-50.2) 38.2FL (36.9-50.2) Platelet Count 230T/MM3 (130-400) 194T/MM3 (130-400) Mean Platelet Volume 10.0UM3 (9.4-12.4) 10.1UM3 (9.4-12.4) Immature Granulocyte % (Auto) 0.0% (0.0-0.5) 0.2% (0.0-0.5) Neutrophils (%) (Auto) 56.5% (33-66) 50.2% (33-66) Lymphocytes (%) (Auto) 35.0% (23-45) 41.2% (23-45) Monocytes (%) (Auto) 5.2% (0-9.0) 4.6% (0-9.0) Eosinophils (%) (Auto) 3.0% (0-4) 3.6% (0-4) Basophils (%) (Auto) 0.3% (0-2) 0.2% (0-2) Absolute Immature Granulocyte (auto 0.00T/MM3 (0.00-0.03) 0.01T/MM3 (0.00-0.03) Absolute Neutrophils (auto) 3.2T/MM3 (1.8-7.7) 2.4T/MM3 (1.8-7.7) Absolute Lymphocytes (auto) 2.0T/MM3 (1-4.8) 2.0T/MM3 (1-4.8) Absolute Monocytes (auto) 0.3T/MM3 (0-0.8) 0.2T/MM3 (0-0.8) Absolute Eosinophils (auto) 0.2T/MM3 (0-0.5) 0.2T/MM3 (0-0.5) Absolute Basophils (auto) 0.0T/MM3 (0-0.2) 0.0T/MM3 (0-0.2) Turbidity < 20 (0-20) < 20 (0-20) Sodium Level 147MEQ/L (134-144) 141MEQ/L (134-144) Potassium Level 3.9MEQ/L (3.6-5) 3.9MEQ/L (3.6-5) Chloride Level 110MEQ/L (98-107) 106MEQ/L (98-107) Carbon Dioxide Level 24MEQ/L (22-30) 24MEQ/L (22-30) Anion Gap 13MEQ/L (5-15) 11MEQ/L (5-15) Blood Urea Nitrogen 7.0MG/DL (7-17) 6.0MG/DL (7-17) Creatinine 0.6MG/DL (0.7-1.2) 0.6MG/DL (0.7-1.2) Glomerular Filtration Rate Calc 110 110 BUN/Creatinine Ratio 12RATIO (6-26) 10RATIO (6-26) Glucose Level 121MG/DL (65-110) 93MG/DL (65-110) Hemoglobin A1c 5.7% (6.1-7.9) Calculated Osmolality 281MOSM/KG (261-280) 269MOSM/KG (261-280) Calcium Level 9.3MG/DL (8.4-10.2) 8.4MG/DL (8.4-10.2) Total Bilirubin 0.60MG/DL (0.20-1.30) 0.80MG/DL (0.20-1.30) Conjugated Bilirubin 0.00MG/DL (0.00-0.30) Unconjugated Bilirubin 0.10MG/DL (0.00-1.10) Icterus Index < 2 (0-7) < 2 (0-7) Aspartate Amino Transf (AST/SGOT) 76U/L (14-36) 74U/L (14-36) Alanine Aminotransferase (ALT/SGPT) 90U/L (9-52) 82U/L (9-52) Alkaline Phosphatase 100U/L (38-126) 60U/L (38-126) Total Protein 7.1G/DL (6.3-8.2) 5.8G/DL (6.3-8.2) Albumin 4.0G/DL (3.5-5.0) 3.1G/DL (3.5-5.0) Globulin 3.1G/DL (2.4-3.6) 2.7G/DL (2.4-3.6) Albumin/Globulin Ratio 1.3RATIO (1.1-2.2) 1.1RATIO (1.1-2.2) Lipase 288U/L (23-300) Thyroid Stimulating Hormone (TSH) 7.52MIU/L (0.47-4.68) Chemistry Specimen Hemolysis < 15 (0-25) < 15 (0-25) History of Present Illness Florencia Clifford is a 40 y/o lady who started having abdominal pain on Monday night. It started out like an upset stomach, and she thought she'd be able to "tough it out". However, her pain worsened in intensity, and "buckled" her over in pain. Initially the pain started in epigastric area but when it's severe it spreads all over and shoots to her back. She has had severe nausea and near- emesis (she's holding it in). She hasn't been able to eat anything - as soon as she does the pain starts. She is only able to tolerate ice chips. Symptoms start even with a sip of lala phoebe. She denies fever/chills, weakness, or syncope. She reports an hour-long episode of dizziness about a week ago. No respiratory symptoms. The pain doesn't advance into her chest. She reports that her 15-year old had mono 3 weeks ago, but otherwise has not been exposed to any illness. Her family has been eating the same food as she has been and no one else is sick. She denies any recent travel. No dysuria or frequency. She takes Ibuprofen 800 mg a couple times per week. No ASA use. She reports she's had abdominal bloating that started 2 weeks after her hysterectomy in May - the bloating is made worse with ambulation. She's recently seen Dr. Velez for weight loss, and started Victoza about 2 weeks ago; otherwise, no new medication. Since her abdominal pain and nausea wouldn't relent, she presented to [facility] ED. Initial VS were stable (mild tachycardia). CBC was unremarkable. Chemistries showed hypernatremia (147) and mildly elevated LFTs (AST 76, ALT 90; AP & Tbili were normal). UA was negative for UTI. A CT scan of her abdomen and pelvis was done, which was negative for acute findings. She received a liter of fluid, Zofran, and Toradol in the ED without resolution of her symptoms. The hospitalist service was notified and she was admitted to observation status for further evaluation and symptom control. Hospital Course Admitted to observation status under the hospitalist service for intractable nausea and severe abdominal pain. Patient was treated with Protonix Reglan and Carafate which resolved her symptoms. Her diet was advanced and she was tolerating full liquids at time of discharge he hurt to eat solid foods. She had no further episodes of nausea during her hospitalization. Is no evidence of pancreatitis. Early in the morning on day of discharge she was reluctant to go home but as she was tolerating food more she very eager to go home. She did not require any further Dilaudid except upon admission. Abdominal pain/Epigastric tenderness: Lipase with normal and CT did not show evidence of pancreatitis. Will start Carafate and Protonix to treat empirically for PUD. Dilaudid if needed for severe pain. Intractable Nausea: Zofran as needed (although was not helpful in the emergency department). Will start scheduled Reglan. Hypernatremia: She received a liter of normal saline in the emergency department. Will start half-normal saline at 125 mL per hour. AST and ALT elevations: Review of records at [facility] revealed normal LFTs in 2014 and 2016, even though she does carry a diagnosis of nonalcoholic fatty liver disease. Total bilirubin was normal, alkaline phosphatase was also normal. Hepatitis B and hepatitis C were done recently in the clinic, and were negative. Hyperglycemia (minimal): Glucose was 121 on admission. I did not see a hemoglobin A1c ordered at the clinic. Will check one now. Hypothyroidism: TSH on admission was 7.52. Recommend follow-up with Dr. Velez. She was taken off of her levothyroxine in April 2016. She had a TSH drawn in the clinic on 08/10/16, which was 4.97 (upper range of normal 4.96), free T4 was normal at 0.9. At that time, Dr. Velez recommended observation. Morbid obesity: Weight gain of 30 pounds since April 2016. Abdominal symptoms and bloating have made it very difficult for her to exercise since this exacerbates the bloating. Dr. Velez started her on Victoza about 2 weeks ago. Could consider a delayed reaction to Victoza. Side effect profile shows nausea in 39%, diarrhea in 21%, Constipation 19%, vomiting in 16% and abdominal pain in 5% of people. Problems: (1) Abdominal pain Status: Resolved Assessment & Plan: CT abd/pelvis 09/05/16 1. No abnormal pancreatic enhancement or peripancreatic inflammatory changes to suggest acute pancreatitis by CT. 2. No other acute abdominopelvic process identified by contrast-enhanced CT. 3. Hepatomegaly and steatosis. 4. Cholecystectomy and hysterectomy. 5. Degenerative disc disease of the visualized spine. Given the fact that it improves a Carafate, this is most likely a gastritis. We will continue Carafate at this time along with the Protonix and slowly advance her diet. (2) Hypernatremia Status: Resolved (3) LFT elevation Status: Acute Assessment & Plan: AST and ALT have been normal in [id number] per [facility] records Etiology of this is unclear at this time. This likely secondary to the fatty liver. We will defer to her outpatient clinicians for further workup. I do not believe this is the etiology of her abdominal pain. (4) Anxiety Status: Chronic (5) ADHD (attention deficit hyperactivity disorder) Status: Chronic (6) Insomnia Status: Chronic (7) Hypothyroidism Status: Chronic (8) Paroxysmal tachycardia Status: Chronic (9) HTN (hypertension) Status: Chronic (10) Nonalcoholic fatty liver disease Status: Chronic (11) Morbid obesity with BMI of 50.0-59.9, adult Status: Chronic Code Status Full Code Home Meds Active Scripts Ibuprofen (Ibuprofen) 800 Mg Tablet, 800 MG PO Q8H Y for PAIN, #40 TAB Prov:JOHN GEE MD 05/18/16 Reported Medications Liraglutide (Victoza 3-River) 0.6 Mg/0.1 Ml Pen.injctr, 0.6 MG SQ HS, SYRINGE 09/05/16 Albuterol Sulfate (Proair HFA 90 mcg/actuation) 8.5 Gm Hfa.aer.ad, 2 PUFF INH PRN Y for ASTHMA, #85 09/05/16 Lisinopril/Hydrochlorothiazide (Lisinopril-Hctz 20-25 mg Tab) 1 Each Tablet, 1 TAB PO DAILY 09/05/16 Alprazolam (Alprazolam) 1 Mg Tablet, 1 MG PO PRN Y for ANXIETY, TAB 06/07/14 Zolpidem Tartrate (Ambien) 10 Mg Tablet, 10 MG PO HS Y for PRN ORDERS, TAB Take 1 tablet, by mouth, 1 time a day (at BEDTIME). 06/07/14 Dextroamphetamine/Amphetamine (Adderall Xr 30 mg Capsule) 30 Mg Cap.er.24h, 1 CAP PO DAILY, CAP 06/07/14 Face to Face Encounter I met with patient on the day of dismissal and discussed follow up appointments , medications, and safety plan. Discharge Disposition Home SUSHANT RAMSAY MD September 06, 2016 14:58
[2016-09-06 16:58] VITALS: BP 122/59; PULSE 87; RESP 18; TEMP 98.5; O2SAT 99
--- NOTE | 2016-09-06 17:10 | NUR ---
DISMISSAL pt has been dismissed to home. all dismissal paperwork has been reviewed with the pt and a copy was sent home. IV was DC'd. pt took all personal belongings. pt left with her daughter.
== END 2016-09-06 17:10 | disposition home or self-care (01) ==
LOC: ED 08:05 → EDHOLD 09:50 → MED 10:25
PROVIDERS: ADMIT Internal Medicine; ATTEND Internal Medicine
DX: R10.13 Epigastric pain (principal); R11.2 Nausea with vomiting, unspecified; E87.0 Hyperosmolality and hypernatremia; R79.89 Other specified abnormal findings of blood chemistry; F41.9 Anxiety disorder, unspecified; F90.9 Attention-deficit hyperactivity disorder, unspecified type; F51.04 Psychophysiologic insomnia; E03.9 Hypothyroidism, unspecified; I47.9 Paroxysmal tachycardia, unspecified; I10 Essential (primary) hypertension; K76.0 Fatty (change of) liver, not elsewhere classified; E66.01 Morbid (severe) obesity due to excess calories; Z68.43 Body mass index [BMI] 50.0-59.9, adult; Z79.1 Long term (current) use of non-steroidal anti-inflammatories (NSAID); Z79.899 Other long term (current) drug therapy
CPT/HCPCS: 74177; 80048; 80053; 80076; 81003; 83036; 83690; 84443; 85025; 96361; 96374; 96375; 96376; 99284; C9113; G0378; J1170; J1885; J2060; J2405; J2765; J7030; J7050; Q9967; 99218